=== PATIENT | male | born 1950 | race Caucasian/White ===

== ENCOUNTER 2025-05-02 08:56 | Outpatient (CLI) | payer OTHER ==
--- NOTE | 2025-05-02 11:19 | ELECTROCARDIOGRAPH REPORT ---
[facility] Test Date: 2025-05-02 Test Time: 09:12:35 Pat Name: DUYEN VELOZ Department: PRE/OP CARDIOLOGY Room: Gender: M It Consulting Manager: MANOLO : 1950 Requested By: KVNG ESPINO Order Number: [id number] Reading MD: Measurements Intervals Hustler Rate: 90 P: 63 [place]: 184 QRS: 245 QRSD: 133 T: 70 QT: 377 QTc: 462 Interpretive Statements Atrial-sensed ventricular-paced rhythm No further analysis attempted due to paced rhythm Please click the below link to view image of tracing.
--- NOTE | 2025-05-02 11:24 | RADIOLOGY REPORT ---
CHEST RADIOGRAPH Indication: CHF Technique: Frontal and lateral view of the chest was obtained Comparison: None FINDINGS: Lines and Tubes: Left chest wall pacemaker /AICD Lungs: Clear Pleura: No effusion. No pneumothorax. Cardiomediastinal contours: Unremarkable Bones: Unremarkable IMPRESSION: No evidence of acute disease.
--- NOTE | 2025-05-02 19:00 | CARDIOLOGY REPORT ---
APPROVED REPORT EXAM: Comprehensive 2D, Doppler, and color-flow Echocardiogram. Patient Location: OUT-PATIENT Blood Pressure: 100/68 mmHg Heart Rate: 83 bpm Rhythm: Paced Indications CHF AICD Brazing Machine Feeder is Kong Yo MD No previous echo 2D Dimensions LA Diam3.8 cm IVSd 0.9 (0.7-1.1cm) LVDd 5.0 cm PWd 1.0 (0.7-1.1cm) IVSs 1.1 (0.8-1.2cm) LVDs 4.4 (2.5-4.0cm) PWs 1.4 (0.8-1.2cm) LVOT Diameter 2.05 (1.8-2.4cm) LVEF(%) 24.3 (>50%) IVC 29.70 mm FS (%) 11.2 % SV 28.4 ml M-Mode Dimensions MV EPSS 0.6 (<0.5cm) Aortic Valve AoV Peak Jeremy. 128.7 cm/s AoV VTI 21.5 cm AO Peak GR. 6.7 mmHg AO Mean GR. 4 mmHg LVOT VTI 13.70 cm LVOT Peak Jeremy. 95.1 cm/s GELA (VMAX) 2.44 cm2 GELA (VTI) 2.10 cm2 Mitral Valve MV E Velocity 41.3 cm/s MV DECEL TIME 192 ms MV A Velocity 73.1 cm/s MV PHT 54 ms E/A Ratio 0.6 MVA (PHT) 4.08 cm2 TDI E/Medial E' 4.1 Tricuspid Valve TR P. Velocity 300 cm/s RAP ESTIMATE 15 mmHg TR Peak Gr. 37 mmHg RVSP 52 mmHg Pulmonary Vein S2 Velocity 88.78 cm/s PVa [id number] msec LEFT VENTRICLE Normal LV size and wall thickness. Overall LV systolic function appears severely reduced. LVEF is 25% . RIGHT VENTRICLE RV appears severely dilated with normal contractility. Pacemaker wire in right heart. RVSP is estimat ed at 52 mmHG. ATRIA The left atrium size is normal. AORTIC VALVE Trileaflet AV appears sclerotic without stenosis. No insufficiency. MITRAL VALVE MV is thickened with mild annular thickening and no stenosis. Trace mitral regurgitation. TRICUSPID VALVE The tricuspid valve is normal in structure. Moderate to severe tricuspid regurgitation with flow reve rsal in hepatic vein. PULMONIC VALVE The pulmonary valve is normal in structure. Trace pulmonic regurgitation. GREAT VESSELS The aortic root is normal in size. IVC is dilated and collapses greater than 50% with inspiration. PERICARDIUM There is no pericardial effusion. Other Information Study Quality: Adequate Conclusion Normal LV size and wall thickness. Overall LV systolic function appears severely reduced. LVEF is 25% . RV appears severely dilated with normal contractility. Pacemaker wire in right heart. RVSP is estimat ed at 52 mmHG. The left atrium size is normal. Trileaflet AV appears sclerotic without stenosis. No insufficiency. MV is thickened with mild annular thickening and no stenosis. MV is thickened with mild annular thickening and no stenosis. Trace mitral regurgitation. The tricuspid valve is normal in structure. Moderate to severe tricuspid regurgitation with flow reve rsal in hepatic vein. The pulmonary valve is normal in structure. Trace pulmonic regurgitation. There is no pericardial effusion.
== END 2025-05-02 23:59 | disposition home or self-care (01) ==
LOC: CARD DIAG 08:56
PROVIDERS: ATTEND Chiropractor
DX: I08.3 Combined rheumatic disorders of mitral, aortic and tricuspid valves (principal); I50.9 Heart failure, unspecified
CPT/HCPCS: 71046; 93005; 93306

== ENCOUNTER 2025-05-30 12:38 | Outpatient (CLI) | payer OTHER ==
[~2025-05-30] VITALS: Ht 170.7 cm; Wt 69.9 kg
[2025-05-30] MEDS: albuterol 2.5 MG/3 ML nebule NEB ONE (13:33)
[2025-05-30 13:36] VITALS: PULSE 75; RESP 18; O2SAT 96
[2025-05-30 13:53] VITALS: PULSE 79; RESP 17
== END 2025-05-30 23:59 | disposition home or self-care (01) ==
LOC: RT 12:38
PROVIDERS: ATTEND Chiropractor
DX: R06.02 Shortness of breath (principal)
CPT/HCPCS: 94060; 94760

== ENCOUNTER 2025-07-09 10:56 | Outpatient (CLI) | payer OTHER ==
--- NOTE | 2025-07-09 18:28 | CARDIOLOGY REPORT ---
APPROVED REPORT EXAM: Comprehensive 2D, Doppler, and color-flow Echocardiogram. Patient Location: OUT-PATIENT Blood Pressure: 93 / 56 mmHg Heart Rate: 63 bpm Rhythm: SINUS Indications RECHECK LV FUNCTION AICD 03/2025 KNOWN CONGESTIVE HEART FAILURE Aerodynamicist: FRITZ AVENDAÑO MD Previous echo: 05/02/25 [facility] SS EF: 25%; nlLV SZ/TH; sevLV DYSFX; sevRVE-nlFX; PACER WIRES; RVSP 52; n lLA; nlAV; trMR; mod/sevTR; rev flowHEPATIC; trPI; 2D Dimensions RVDd 4.4 cm RA Major6.6 cm RA Minor6.7 cm M-Mode Dimensions Left Atrium(MM) 4.31 (2.5-4.0cm) IVSd 0.94 (0.7-1.1cm) LVDd 2.09 (4.0-5.6cm) Aortic Root 4.54 (2.2-3.7cm) PWd 0.97 (0.7-1.1cm) IVSs 1.12 cm LVDs 1.95 (2.0-3.8cm) FS (%) 7 % PWs 1.41 cm ESV(Teich) 11.9 ml LVEF(%) 17 (>50%) Tricuspid Valve TR P. Velocity 295 cm/s RAP ESTIMATE 10 mmHg TR Peak Gr. 35 mmHg RVSP 45 mmHg LEFT VENTRICLE Reduced LV size and wall thickness. Overall systolic function is severely reduced. Unchanged from pre vious 04/2025 exam. Flattened, dyssynchronous IV septum. LVEF is 25%. RIGHT VENTRICLE RV is severely dilated with adequate function. Thickened RV free wall. Elevated right heart pressures with an RVSP of 45 mmHg. Unchanged from 04/2025 exam. ATRIA Left atrium is mildly dilated. AORTIC VALVE Trileaflet AV appears mildly sclerotic without stenosis or insufficiency. MITRAL VALVE Mild MV annular calcification without stenosis. Trace regurgitation. TRICUSPID VALVE TV appears structurally normal with severe regurgitation with hepatic flow reversal. Unchanged from . PULMONIC VALVE Normal PV without stenosis, physiologic insufficiency. GREAT VESSELS Aortic root is normal in size. Ascending aorta is normal in size. IVC is dilated and collapses less t juarez 50% with inspiration. PERICARDIUM Normal pericardium. No effusion. Other Information Study Quality: Adequate Conclusion Reduced LV size and wall thickness. Overall systolic function is severely reduced. Unchanged from pr evious 04/2025 exam. Flattened, dyssynchronous IV septum. LVEF is 25%. RV is severely dilated with adequate function. Thickened RV free wall. Elevated right heart pressure s with an RVSP of 45 mmHg. Unchanged from 04/2025 exam. Left atrium is mildly dilated. Trileaflet AV appears mildly sclerotic without stenosis or insufficiency. Mild MV annular calcification without stenosis. Trace regurgitation. TV appears structurally normal with severe regurgitation with hepatic flow reversal. Unchanged from 04/2025. Normal pericardium. No effusion.
== END 2025-07-09 23:59 | disposition home or self-care (01) ==
LOC: CARD DIAG 10:56
PROVIDERS: ATTEND Chiropractor
DX: I37.1 Nonrheumatic pulmonary valve insufficiency (principal); I50.9 Heart failure, unspecified
CPT/HCPCS: 93308